=== PATIENT | female | born 1975 | race Caucasian/White ===

== ENCOUNTER → 2016-10-20 | Outpatient (CLI) | payer OTHER ==
[~2016-10-20] MED LIST: ATARAX25 MG PO; CIPROFLOXACIN500 MG PO; CLINDAMYCIN150 MG PO; DICLOFENAC POTA50 MG PO; HYDROCODONE BIT1 T11 PO; MIRENA52 MG IU; MOTRIN800 MG PO; NAPROSYN500 MG PO; NKHM; PREDNICOT20 MG PO; PREDNISONE20 MG PO; ROBAXIN750 MG PO; TAMIFLU75 MG PO; TRAMADOL HCL50 MG PO; VICODIN 500 MG-1 TAB PO; VOLTAREN50 M1 PO; ZOFRAN ODT4 MG PO; ZYRTEC10 MG PO; Zofran4 MG PO
== END | disposition home or self-care (01) ==
LOC: US 13:22
DX: T83.39XA Other mechanical complication of intrauterine contraceptive device, initial encounter (principal)

== ENCOUNTER → 2016-11-05 | Outpatient (CLI) | payer OTHER ==
[2016-11-05 10:30] LABS: BASO % 0.5 % (0.0-1.0); EOS # 0.5 10*3/uL (0.0-0.4); EOS % 6.1 % (1.0-4.0); HEMATOCRIT 39.1 % (37.0-47.0); HEMOGLOBIN 13.4 g/dl (12.0-16.0); LYMPH # 2.9 10*3/uL (1.3-4.4); LYMPH % 36.5 % (27.0-41.0); MEAN CELL VOLUME 92.7 fl (81.0-99.0); MEAN CORPUSCULAR HGB 31.8 pg (27.0-31.0); MEAN CORPUSCULAR HGB CONC 34.3 g/dl (33.0-37.0); MEAN PLATELET VOLUME 9.2 fl (9.6-12.3); MONO # 0.3 10*3/uL (0.1-1.0); MONO % 4.3 % (3.0-9.0); NEUT # 4.2 10*3/uL (2.3-7.9); NEUT % 52.3 % (47.0-73.0); PLATELET COUNT AUTOMATED 340 10*3/uL (130-400); RED BLOOD COUNT 4.22 10*6/uL (4.10-5.10); RED CELL DISTRI WIDTH 11.9 % (0-14.5); WHITE BLOOD COUNT 7.9 10*3/uL (4.8-10.8)
[2016-11-05 11:06] LABS: ALBUMIN 3.9 gm/dl (3.1-4.5); BILIRUBIN, TOTAL 0.4 mg/dl (0.2-1.0); BUN 9 mg/dl (7-24); CARBON DIOXIDE 23 mmol/L (21-32); CHLORIDE 110 mmol/L (98-107); CHOLESTEROL 164 mg/dL (<200); EST GLOM FILT AFRICAN AMERICAN > 60 ml/min; GLUCOSE 93 mg/dL (65-99); POTASSIUM 4.1 mmol/L (3.5-5.1); SGOT/AST 8 IU/L (3-35); SGPT/ALT 16 U/L (12-78); SODIUM 143 mmol/L (136-145); TOTAL PROTEIN 7.9 gm/dL (6.4-8.2); TRIGLYCERIDES 146 mg/dl (<150); VLDL CHOLESTEROL 29 mg/dL (6-40)
[2016-11-05 11:15] LABS: ALKALINE PHOSPHATASE 62 U/L (45-117); HDL CHOLESTEROL 33 mg/dl (40-60); LDL CHOLESTEROL 102 mg/dL (9-159)
== END | disposition home or self-care (01) ==
LOC: LAB 09:56
PROVIDERS: Nurse Practitioner Family
DX: Z13.220 Encounter for screening for lipoid disorders (principal); Z82.49 Family history of ischemic heart disease and other diseases of the circulatory system

== ENCOUNTER → 2017-04-08 | Outpatient (CLI) | payer OTHER ==
[2017-04-08 10:52] LABS: BASO # 0.1 10*3/uL (0.0-0.1); BASO % 0.7 % (0.0-1.0); EOS # 0.5 10*3/uL (0.0-0.4); EOS % 6.4 % (1.0-4.0); HEMATOCRIT 38.3 % (37.0-47.0); LYMPH # 2.5 10*3/uL (1.3-4.4); LYMPH % 34.8 % (27.0-41.0); MEAN CELL VOLUME 94.3 fl (81.0-99.0); MEAN CORPUSCULAR HGB CONC 33.9 g/dl (33.0-37.0); MONO # 0.3 10*3/uL (0.1-1.0); MONO % 4.6 % (3.0-9.0); NEUT # 3.8 10*3/uL (2.3-7.9); NEUT % 53.1 % (47.0-73.0); PLATELET COUNT AUTOMATED 326 10*3/uL (130-400); RED BLOOD COUNT 4.06 10*6/uL (4.10-5.10); RED CELL DISTRI WIDTH 11.9 % (0-14.5); WHITE BLOOD COUNT 7.2 10*3/uL (4.8-10.8)
[2017-04-08 11:16] LABS: ALBUMIN 3.6 gm/dl (3.1-4.5); ALKALINE PHOSPHATASE 79 U/L (45-117); BUN 9 mg/dl (7-24); CHLORIDE 109 mmol/L (98-107); CHOLESTEROL 173 mg/dL (<200); CREATININE 0.84 mg/dL (0.55-1.02); HDL CHOLESTEROL 30 mg/dl (40-60); LDL CHOLESTEROL 118 mg/dL (9-159); POTASSIUM 3.8 mmol/L (3.5-5.1); SGOT/AST 9 IU/L (3-35); SGPT/ALT 13 U/L (12-78); SODIUM 139 mmol/L (136-145); TOTAL PROTEIN 7.7 gm/dL (6.4-8.2); TRIGLYCERIDES 124 mg/dl (<150); VLDL CHOLESTEROL 25 mg/dL (6-40)
== END | disposition home or self-care (01) ==
LOC: LAB 10:15
PROVIDERS: Nurse Practitioner Family
DX: E66.9 Obesity, unspecified (principal)

== ENCOUNTER → 2017-04-22 | Outpatient (CLI) | payer OTHER | END | disposition home or self-care (01) | LOC: CARD 04-21 10:00 | DX: R00.2 Palpitations (principal) ==

== ENCOUNTER → 2017-05-18 | Outpatient (CLI) | payer OTHER | END | disposition home or self-care (01) | LOC: US 05-13 10:00 | DX: R10.13 Epigastric pain (principal) ==

== ENCOUNTER 2017-06-16 15:28 | Emergency (ER) | payer OTHER ==
[~2017-06-16] VITALS: Ht 157.4 cm; Wt 65.8 kg
--- NOTE | ~2017-06-16 | EKG ---
[place], [place] ELECTROCARDIOGRAM REPORT NAME: NICK JONES UNIT #: [id number] ROOM: DOCTOR: MILLY GORDON MD BIRTHDATE: [birth year] DOS: 06/16/2017 TIME: 1537 hours. Normal sinus rhythm at 67 beats per minute. The tracing is normal. No previous tracing is available in comparison. MILLY GORDON MD CM:EKGRPT:ELECTROCARDIOGRAM REPORT [id number] MILLY GORDON MD
[2017-06-16 15:57] LABS: BASO # 0.1 10*3/uL (0.0-0.1); BASO % 0.6 % (0.0-1.0); EOS # 0.5 10*3/uL (0.0-0.4); EOS % 4.2 % (1.0-4.0); HEMATOCRIT 35.4 % (37.0-47.0); HEMOGLOBIN 12.3 g/dl (12.0-16.0); LYMPH # 3.6 10*3/uL (1.3-4.4); LYMPH % 32.8 % (27.0-41.0); MEAN CELL VOLUME 93.2 fl (81.0-99.0); MEAN CORPUSCULAR HGB 32.4 pg (27.0-31.0); MEAN CORPUSCULAR HGB CONC 34.7 g/dl (33.0-37.0); MEAN PLATELET VOLUME 8.6 fl (9.6-12.3); MONO # 0.5 10*3/uL (0.1-1.0); MONO % 4.3 % (3.0-9.0); NEUT # 6.3 10*3/uL (2.3-7.9); NEUT % 57.9 % (47.0-73.0); PLATELET COUNT AUTOMATED 360 10*3/uL (130-400); RED CELL DISTRI WIDTH 11.9 % (0-14.5); WHITE BLOOD COUNT 10.9 10*3/uL (4.8-10.8)
[2017-06-16 16:06] LABS: ACT PARTIAL THROMBO TIME 23.5 SECONDS (20.8-31.5)
[2017-06-16 16:15] LABS: ALBUMIN 3.8 gm/dl (3.1-4.5); ALKALINE PHOSPHATASE 76 U/L (45-117); BUN 10 mg/dl (7-24); CHLORIDE 107 mmol/L (98-107); CREATININE 0.86 mg/dL (0.55-1.02); POTASSIUM 3.7 mmol/L (3.5-5.1); SGOT/AST 7 IU/L (3-35); SGPT/ALT 18 U/L (12-78); SODIUM 139 mmol/L (136-145); TOTAL PROTEIN 7.6 gm/dL (6.4-8.2)
[2017-06-16 16:16] LABS: TROPONIN I < 0.015 ng/ml (<0.045)
== END 2017-06-16 17:22 | disposition home or self-care (01) ==
LOC: ED 15:28
PROVIDERS: Emergency Medicine
DX: R07.89 Other chest pain (principal); H53.122 Transient visual loss, left eye; G43.809 Other migraine, not intractable, without status migrainosus; F17.210 Nicotine dependence, cigarettes, uncomplicated; Z88.0 Allergy status to penicillin

== ENCOUNTER → 2018-01-18 | Outpatient (CLI) | payer OTHER ==
[2018-01-18 09:47] LABS: BASO # 0.1 10*3/uL (0.0-0.1); BASO % 0.8 % (0.0-1.0); EOS # 0.4 10*3/uL (0.0-0.4); EOS % 5.1 % (1.0-4.0); HEMATOCRIT 40.9 % (37.0-47.0); HEMOGLOBIN 13.5 g/dl (12.0-16.0); LYMPH # 2.2 10*3/uL (1.3-4.4); LYMPH % 31.6 % (27.0-41.0); MEAN CELL VOLUME 97.8 fl (81.0-99.0); MEAN CORPUSCULAR HGB 32.3 pg (27.0-31.0); MEAN PLATELET VOLUME 8.9 fl (9.6-12.3); MONO # 0.4 10*3/uL (0.1-1.0); MONO % 5.8 % (3.0-9.0); NEUT % 56.1 % (47.0-73.0); PLATELET COUNT AUTOMATED 349 10*3/uL (130-400); RED BLOOD COUNT 4.18 10*6/uL (4.10-5.10); RED CELL DISTRI WIDTH 11.9 % (0-14.5); WHITE BLOOD COUNT 7.1 10*3/uL (4.8-10.8)
[2018-01-18 10:10] LABS: ALKALINE PHOSPHATASE 81 U/L (45-117); BUN 9 mg/dl (7-24); CHLORIDE 108 mmol/L (98-107); CHOLESTEROL 164 mg/dL (<200); CREATININE 0.97 mg/dL (0.55-1.02); HDL CHOLESTEROL 28 mg/dl (40-60); LDL CHOLESTEROL 108 mg/dL (9-159); POTASSIUM 4.1 mmol/L (3.5-5.1); SGOT/AST 10 IU/L (3-35); SGPT/ALT 22 U/L (12-78); SODIUM 139 mmol/L (136-145); TOTAL PROTEIN 8.3 gm/dL (6.4-8.2); TRIGLYCERIDES 138 mg/dl (<150); VLDL CHOLESTEROL 28 mg/dL (6-40)
[2018-01-18 12:00] LABS: VITAMIN D, 25-HYDROXY 30.7 ng/mL (30-100)
== END | disposition home or self-care (01) ==
LOC: LAB 09:14
PROVIDERS: Nurse Practitioner Family
DX: K21.9 Gastro-esophageal reflux disease without esophagitis (principal); G47.00 Insomnia, unspecified; A60.00 Herpesviral infection of urogenital system, unspecified; F39 Unspecified mood [affective] disorder; B35.9 Dermatophytosis, unspecified

== ENCOUNTER → 2018-02-03 | Outpatient (CLI) | payer OTHER | END | disposition home or self-care (01) | LOC: MAMMO 07:23 | DX: Z12.31 Encounter for screening mammogram for malignant neoplasm of breast (principal) ==

== ENCOUNTER 2019-08-16 20:02 | Emergency (ER) | payer OTHER ==
[~2019-08-16] VITALS: Ht 157.4 cm; Wt 71.7 kg
[~2019-08-16 20:02] MED LIST changes: +ZOFRAN4 MG PO
[2019-08-16] MEDS ORDERED: ANAPROX DS550 MG PO (21:57)
== END 2019-08-16 22:26 | disposition home or self-care (01) ==
LOC: ED 20:02
DX: K08.89 Other specified disorders of teeth and supporting structures (principal); Z88.0 Allergy status to penicillin

== ENCOUNTER → 2019-08-24 | Outpatient (CLI) | payer OTHER ==
[~2019-08-24] MED LIST changes: +ANAPROX DS550 MG PO
[2019-08-24 11:08] LABS: BASO # 0.1 10*3/uL (0.0-0.1); BASO % 0.7 % (0.0-1.0); EOS # 0.5 10*3/uL (0.0-0.4); EOS % 6.4 % (1.0-4.0); HEMATOCRIT 39.8 % (37.0-47.0); HEMOGLOBIN 13.1 g/dl (12.0-16.0); LYMPH # 2.4 10*3/uL (1.3-4.4); LYMPH % 33.4 % (27.0-41.0); MEAN CELL VOLUME 97.8 fl (81.0-99.0); MEAN CORPUSCULAR HGB 32.2 pg (27.0-31.0); MEAN CORPUSCULAR HGB CONC 32.9 g/dl (33.0-37.0); MEAN PLATELET VOLUME 8.8 fl (9.6-12.3); MONO # 0.3 10*3/uL (0.1-1.0); MONO % 4.5 % (3.0-9.0); NEUT # 3.9 10*3/uL (2.3-7.9); NEUT % 54.7 % (47.0-73.0); PLATELET COUNT AUTOMATED 409 10*3/uL (130-400); RED BLOOD COUNT 4.07 10*6/uL (4.10-5.10); RED CELL DISTRI WIDTH 12.2 % (0-14.5); WHITE BLOOD COUNT 7.2 10*3/uL (4.8-10.8)
[2019-08-24 11:38] LABS: ALBUMIN 3.7 gm/dl (3.1-4.5); ALKALINE PHOSPHATASE 80 U/L (45-117); BUN 10 mg/dl (7-24); CHLORIDE 110 mmol/L (98-107); CHOLESTEROL 187 mg/dL (<200); CREATININE 0.97 mg/dL (0.55-1.02); HDL CHOLESTEROL 38 mg/dl (40-60); LDL CHOLESTEROL 118 mg/dL (9-159); POTASSIUM 4.2 mmol/L (3.5-5.1); SGOT/AST 11 IU/L (3-35); SGPT/ALT 23 U/L (12-78); SODIUM 139 mmol/L (136-145); TOTAL PROTEIN 7.7 gm/dL (6.4-8.2); TRIGLYCERIDES 156 mg/dl (<150); VLDL CHOLESTEROL 31 mg/dL (6-40)
== END | disposition home or self-care (01) ==
LOC: LAB 10:38
PROVIDERS: Nurse Practitioner Family
DX: E78.2 Mixed hyperlipidemia (principal); E55.9 Vitamin D deficiency, unspecified; E66.3 Overweight

== ENCOUNTER 2021-03-30 12:30 | Emergency (ER) | payer OTHER ==
[2021-03-30] MEDS ORDERED: NAPROXEN250 MG PO (13:01)
[2021-03-30] MEDS ORDERED: CYCLOBENZAPRINE10 MG PO (13:01)
[2021-03-30] MEDS ORDERED: TYLENOL325 M1 PO (13:01)
== END 2021-03-30 13:33 | disposition home or self-care (01) ==
LOC: ED 12:30
DX: M25.512 Pain in left shoulder (principal); E66.9 Obesity, unspecified; Z88.0 Allergy status to penicillin; Z79.899 Other long term (current) drug therapy; Z79.2 Long term (current) use of antibiotics

== ENCOUNTER → 2021-10-01 | Outpatient (CLI) | payer OTHER ==
[~2021-10-01] MED LIST changes: +CYCLOBENZAPRINE10 MG PO; +NAPROXEN250 MG PO; +TYLENOL325 M1 PO
== END | disposition home or self-care (01) ==
LOC: RAD 07:41
PROVIDERS: ATTEND Nurse Practitioner Family
DX: R05.9 Cough, unspecified (principal); R06.2 Wheezing

== ENCOUNTER 2022-11-01 12:33 | Emergency (ER) | payer OTHER ==
[~2022-11-01] VITALS: Ht 157.4 cm; Wt 74.8 kg
[~2022-11-01 12:33] MED LIST changes: +FLUOXETINE HCL10 MG PO; +NEURONTIN100 MG PO; +OMEPRAZOLE MAGN20 MG PO; +TOPIRAMATE50 M2 PO; +TRAZODONE50 MG PO; +VALACYCLOVIR500 M1 PO; +VITAMIN D3125 MCG PO
[2022-11-01] MEDS ORDERED: VIBRA-TAB100 MG PO ×2 (13:02→13:12)
== END 2022-11-01 13:05 | disposition home or self-care (01) ==
LOC: ED 12:33
DX: J32.0 Chronic maxillary sinusitis (principal); K21.9 Gastro-esophageal reflux disease without esophagitis; G62.9 Polyneuropathy, unspecified; Z88.0 Allergy status to penicillin; Z98.890 Other specified postprocedural states

== ENCOUNTER 2023-02-09 16:16 | Emergency (ER) | payer OTHER ==
[~2023-02-09] VITALS: Ht 157.4 cm; Wt 72.6 kg
[~2023-02-09 16:16] MED LIST changes: +VIBRA-TAB100 MG PO
[2023-02-09] MEDS ORDERED: PREDNISONE20 M1 PO (17:14)
== END 2023-02-09 17:28 | disposition home or self-care (01) ==
LOC: ED 16:16
DX: L23.7 Allergic contact dermatitis due to plants, except food (principal); K21.9 Gastro-esophageal reflux disease without esophagitis; G62.9 Polyneuropathy, unspecified; Z88.0 Allergy status to penicillin; Z98.890 Other specified postprocedural states

== ENCOUNTER 2023-02-24 14:46 | Emergency (ER) | payer OTHER ==
[~2023-02-24] VITALS: Ht 157.4 cm; Wt 74.8 kg
[~2023-02-24 14:46] MED LIST changes: +PREDNISONE20 M1 PO
[2023-02-24] MEDS ORDERED: PREDNISONE20 M1 PO (17:22)
[2023-02-24] MEDS ORDERED: EPIPEN 2-P0.3 MG/0.3 IJ (17:25)
== END 2023-02-24 17:50 | disposition home or self-care (01) ==
LOC: ED 14:46
DX: T63.441A Toxic effect of venom of bees, accidental (unintentional), initial encounter (principal); K21.9 Gastro-esophageal reflux disease without esophagitis; Z88.0 Allergy status to penicillin; Z98.890 Other specified postprocedural states; Y92.89 Other specified places as the place of occurrence of the external cause

== ENCOUNTER → 2023-05-25 | Outpatient (CLI) | payer OTHER ==
[~2023-05-25] MED LIST changes: +EPIPEN 2-P0.3 MG/0.3 IJ
[2023-05-25 08:59] LABS: BASO % 0.6 % (0.0-1.0); EOS # 0.3 10*3/uL (0.0-0.4); EOS % 3.7 % (1.0-4.0); HEMATOCRIT 39.6 % (37.0-47.0); LYMPH % 43.5 % (27.0-41.0); MEAN CELL VOLUME 98.8 fl (81.0-99.0); MEAN CORPUSCULAR HGB 33.4 pg (27.0-31.0); MEAN CORPUSCULAR HGB CONC 33.8 g/dl (33.0-37.0); MEAN PLATELET VOLUME 9.2 fl (9.6-12.3); MONO # 0.4 10*3/uL (0.1-1.0); MONO % 5.6 % (3.0-9.0); NEUT # 3.2 10*3/uL (2.3-7.9); NEUT % 46.3 % (47.0-73.0); PLATELET COUNT AUTOMATED 409 10*3/uL (130-400); RED BLOOD COUNT 4.01 10*6/uL (4.10-5.10); RED CELL DISTRI WIDTH 12.2 % (0-14.5)
[2023-05-25 09:45] LABS: ALKALINE PHOSPHATASE 77 U/L (46-116); BUN 10 mg/dl (9-23); CHLORIDE 111 mmol/L (98-107); POTASSIUM 3.8 mmol/L (3.4-5.1); SGPT/ALT 9 U/L (5-49); TOTAL PROTEIN 7.8 gm/dL (6.0-8.0)
[2023-05-25 11:19] LABS: VITAMIN D, 25-HYDROXY 46.5 ng/mL (30-100)
== END | disposition home or self-care (01) ==
LOC: LAB 08:15
PROVIDERS: ATTEND Nurse Practitioner Family
DX: G43.009 Migraine without aura, not intractable, without status migrainosus (principal); E78.2 Mixed hyperlipidemia; E55.9 Vitamin D deficiency, unspecified; R53.83 Other fatigue; E61.1 Iron deficiency; R63.5 Abnormal weight gain

== ENCOUNTER 2023-08-07 19:42 | Emergency (ER) | payer OTHER ==
[~2023-08-07] VITALS: Ht 162.5 cm; Wt 78.0 kg
== END 2023-08-07 21:11 | disposition home or self-care (01) ==
LOC: ED 19:42
DX: J06.9 Acute upper respiratory infection, unspecified (principal); R51.9 Headache, unspecified; K21.9 Gastro-esophageal reflux disease without esophagitis; Z88.0 Allergy status to penicillin; Z98.890 Other specified postprocedural states; Z20.822 Contact with and (suspected) exposure to COVID-19

== ENCOUNTER 2023-08-16 03:34 | Emergency (ER) | payer OTHER ==
[~2023-08-16] VITALS: Ht 162.5 cm; Wt 74.8 kg
[2023-08-16] MEDS ORDERED: MELOXICAM15 MG PO (06:41)
[2023-08-16] MEDS ORDERED: CYCLOBENZAPRINE10 MG PO (06:41)
== END 2023-08-16 06:56 | disposition home or self-care (01) ==
LOC: ED 03:34
DX: M54.50 Low back pain, unspecified (principal); M62.830 Muscle spasm of back; K21.9 Gastro-esophageal reflux disease without esophagitis; Z88.0 Allergy status to penicillin; Z98.890 Other specified postprocedural states

== ENCOUNTER → 2023-10-12 | Outpatient (CLI) | payer OTHER ==
[~2023-10-12] MED LIST changes: +MELOXICAM15 MG PO
== END | disposition home or self-care (01) ==
LOC: LAB 10:57
PROVIDERS: ATTEND Nurse Practitioner Family
DX: R15.9 Full incontinence of feces (principal); R19.7 Diarrhea, unspecified

== ENCOUNTER 2023-11-02 03:58 | Emergency (ER) | payer OTHER ==
[~2023-11-02] VITALS: Ht 157.4 cm; Wt 76.2 kg
[2023-11-02] MEDS ORDERED: IMITREX50 MG PO (04:20)
[2023-11-02] MEDS ORDERED: Ondansetron Hydrochloride 4 MG/2 ML VIAL IV ONE (05:40)
[2023-11-02] MEDS ORDERED: Ketorolac Tromethamine 30 MG/ML VIAL IV ONE (05:40)
[2023-11-02] MEDS ORDERED: SODIUM CHLORIDE 0.9% 1,000 ML IV ONE (05:40)
[2023-11-02 05:44] LABS: ALKALINE PHOSPHATASE 93 U/L (46-116); BUN 17 mg/dl (9-23); CHLORIDE 112 mmol/L (98-107); POTASSIUM 3.3 mmol/L (3.4-5.1); SGPT/ALT 21 U/L (5-49); TOTAL PROTEIN 7.8 gm/dL (6.0-8.0)
[2023-11-02 06:00] LABS: BASO # 0.1 10*3/uL (0.0-0.1); BASO % 0.5 % (0.0-1.0); EOS # 0.4 10*3/uL (0.0-0.4); EOS % 3.6 % (1.0-4.0); HEMATOCRIT 41.6 % (37.0-47.0); LYMPH # 1.7 10*3/uL (1.3-4.4); MEAN CELL VOLUME 98.1 fl (81.0-99.0); MEAN CORPUSCULAR HGB 32.8 pg (27.0-31.0); MEAN CORPUSCULAR HGB CONC 33.4 g/dl (33.0-37.0); MEAN PLATELET VOLUME 9.1 fl (9.6-12.3); MONO # 0.5 10*3/uL (0.1-1.0); MONO % 4.3 % (3.0-9.0); NEUT # 8.4 10*3/uL (2.3-7.9); NEUT % 76.2 % (47.0-73.0); PLATELET COUNT AUTOMATED 418 10*3/uL (130-400); RED BLOOD COUNT 4.24 10*6/uL (4.10-5.10); RED CELL DISTRI WIDTH 11.9 % (0-14.5); WHITE BLOOD COUNT 11.1 10*3/uL (4.8-10.8)
[2023-11-02] MEDS ORDERED: POTASSIUM CHLORIDE 20 MEQ TAB PO ONE (06:00)
[2023-11-02] MEDS ORDERED: HYDROmorphONE Hydrochloride 0.5 MG/0.5 ML SYRINGE IV ONE (09:15)
== END 2023-11-02 09:18 | disposition home or self-care (01) ==
LOC: ED 03:58
PROVIDERS: Internal Medicine
DX: B34.9 Viral infection, unspecified (principal); Z20.822 Contact with and (suspected) exposure to COVID-19; K52.9 Noninfective gastroenteritis and colitis, unspecified; E87.6 Hypokalemia; R11.2 Nausea with vomiting, unspecified; K21.9 Gastro-esophageal reflux disease without esophagitis; G43.909 Migraine, unspecified, not intractable, without status migrainosus; Z88.0 Allergy status to penicillin; Z98.890 Other specified postprocedural states

== ENCOUNTER 2023-11-22 17:45 | Emergency (ER) | payer OTHER ==
[~2023-11-22] VITALS: Ht 157.4 cm; Wt 77.1 kg
[~2023-11-22 17:45] MED LIST changes: +IMITREX50 MG PO
[2023-11-22] MEDS ORDERED: Ondansetron Hydrochloride 4 MG/2 ML VIAL IV ONE (18:55)
[2023-11-22] MEDS ORDERED: HYDROmorphONE Hydrochloride 0.5 MG/0.5 ML SYRINGE IV ONE (18:55)
[2023-11-22] MEDS ORDERED: SODIUM CHLORIDE 0.9% 1,000 ML IV ONE (18:55)
[2023-11-22 19:05] LABS: BILIRUBIN Negative (Negative); BLOOD 2+ (Negative); CLARITY Cloudy (Clear); COLOR Yellow (Yellow); GLUCOSE Negative (Negative); KETONE Trace (Negative); LEUKO ESTERASE 1+ (Negative); NITRITE Negative (Negative); PH 5.5 (4.5-8.0); SPECIFIC GRAVITY >= 1.030 (1.001-1.030)
[2023-11-22 19:13] LABS: BACTERIA 2+; EPITHELIAL CELLS 21-30; MUCOUS 2+; RBC 21-30 rbc/hpf (0-2)
[2023-11-22 19:23] LABS: BASO # 0.1 10*3/uL (0.0-0.1); BASO % 0.4 % (0.0-1.0); EOS # 0.1 10*3/uL (0.0-0.4); EOS % 0.5 % (1.0-4.0); LYMPH # 1.5 10*3/uL (1.3-4.4); LYMPH % 9.7 % (27.0-41.0); MEAN CELL VOLUME 98.7 fl (81.0-99.0); MEAN CORPUSCULAR HGB 31.9 pg (27.0-31.0); MEAN CORPUSCULAR HGB CONC 32.3 g/dl (33.0-37.0); MEAN PLATELET VOLUME 8.9 fl (9.6-12.3); MONO # 0.4 10*3/uL (0.1-1.0); MONO % 2.9 % (3.0-9.0); NEUT # 12.9 10*3/uL (2.3-7.9); NEUT % 86.1 % (47.0-73.0); PLATELET COUNT AUTOMATED 363 10*3/uL (130-400); RED BLOOD COUNT 3.95 10*6/uL (4.10-5.10)
[2023-11-22 19:34] LABS: ACT PARTIAL THROMBO TIME 24.8 SECONDS (20.0-32.1)
[2023-11-22 19:44] LABS: ALKALINE PHOSPHATASE 82 U/L (46-116); BUN 13 mg/dl (9-23); CHLORIDE 109 mmol/L (98-107); LIPASE 39 U/L (12-53); POTASSIUM 3.8 mmol/L (3.4-5.1); SGPT/ALT 19 U/L (5-49); TOTAL PROTEIN 7.6 gm/dL (6.0-8.0)
[2023-11-22] MEDS ORDERED: CIPRO500 MG PO (21:57)
[2023-11-22] MEDS ORDERED: Ketorolac Tromethamine 30 MG/ML VIAL IV ONE (22:00)
[2023-11-22] MEDS ORDERED: Ciprofloxacin Hydrochloride 500 MG TAB PO ONE (22:15)
== END 2023-11-22 22:30 | disposition home or self-care (01) ==
LOC: ED 17:45
PROVIDERS: Nurse Practitioner Family
DX: N39.0 Urinary tract infection, site not specified (principal); R11.2 Nausea with vomiting, unspecified; E87.6 Hypokalemia; K21.9 Gastro-esophageal reflux disease without esophagitis; G43.909 Migraine, unspecified, not intractable, without status migrainosus; E78.00 Pure hypercholesterolemia, unspecified; Z88.0 Allergy status to penicillin; Z98.890 Other specified postprocedural states

== ENCOUNTER 2023-12-06 03:40 | Emergency (ER) | payer OTHER ==
[~2023-12-06] VITALS: Ht 157.4 cm; Wt 77.1 kg
[~2023-12-06 03:40] MED LIST changes: +CIPRO500 MG PO
[2023-12-06] MEDS ORDERED: methylPREDNISolone sod succ 125 MG VIAL IM ONE (03:55)
== END 2023-12-06 04:08 | disposition home or self-care (01) ==
LOC: ED 03:40
DX: L23.7 Allergic contact dermatitis due to plants, except food (principal); K21.9 Gastro-esophageal reflux disease without esophagitis; G43.909 Migraine, unspecified, not intractable, without status migrainosus; Z88.0 Allergy status to penicillin; Z98.890 Other specified postprocedural states

== ENCOUNTER 2024-03-13 10:37 | Emergency (ER) | payer OTHER ==
[~2024-03-13] VITALS: Ht 157.4 cm; Wt 74.8 kg
[2024-03-13] MEDS ORDERED: diphenhydrAMINE hydrochloride 50 MG/ML VIAL IV ONE (10:55)
[2024-03-13] MEDS ORDERED: ACETAMINOPHEN 325 MG TAB PO ONE (10:55)
[2024-03-13] MEDS ORDERED: SODIUM CHLORIDE 0.9% 1,000 ML IV ONE (10:55)
[2024-03-13] MEDS ORDERED: Ketorolac Tromethamine 15 MG/ML VIAL IV ONE (10:55)
[2024-03-13] MEDS ORDERED: Metoclopramide Hydrochloride 10 MG/2 ML AMP IV ONE (10:55)
[2024-03-13 11:13] LABS: BASO # 0.1 10*3/uL (0.0-0.1); BASO % 0.4 % (0.0-1.0); EOS # 0.1 10*3/uL (0.0-0.4); EOS % 0.8 % (1.0-4.0); HEMATOCRIT 39.6 % (37.0-47.0); LYMPH # 1.7 10*3/uL (1.3-4.4); LYMPH % 12.5 % (27.0-41.0); MEAN CELL VOLUME 95.4 fl (81.0-99.0); MEAN CORPUSCULAR HGB 31.8 pg (27.0-31.0); MEAN CORPUSCULAR HGB CONC 33.3 g/dl (33.0-37.0); MEAN PLATELET VOLUME 8.6 fl (9.6-12.3); MONO # 0.5 10*3/uL (0.1-1.0); MONO % 3.7 % (3.0-9.0); NEUT % 82.3 % (47.0-73.0); PLATELET COUNT AUTOMATED 342 10*3/uL (130-400); RED BLOOD COUNT 4.15 10*6/uL (4.10-5.10); WHITE BLOOD COUNT 13.4 10*3/uL (4.8-10.8)
[2024-03-13 11:31] LABS: ALKALINE PHOSPHATASE 94 U/L (46-116); BUN 11 mg/dl (9-23); CHLORIDE 110 mmol/L (98-107); POTASSIUM 2.8 mmol/L (3.4-5.1); SGPT/ALT 11 U/L (5-49); TOTAL PROTEIN 7.8 gm/dL (6.0-8.0)
[2024-03-13] MEDS ORDERED: POTASSIUM CHLORIDE IN WATER 100 ML IV ONE (11:40)
[2024-03-13] MEDS ORDERED: POTASSIUM CHLORIDE 20 MEQ TAB PO ONE (11:40)
[2024-03-13] MEDS ORDERED: REGLAN10 M1 PO (12:54)
== END 2024-03-13 13:34 | disposition home or self-care (01) ==
LOC: ED 10:37
PROVIDERS: Internal Medicine
DX: G43.909 Migraine, unspecified, not intractable, without status migrainosus (principal); E87.6 Hypokalemia; R11.2 Nausea with vomiting, unspecified; R19.7 Diarrhea, unspecified; K21.9 Gastro-esophageal reflux disease without esophagitis; Z88.0 Allergy status to penicillin; Z88.8 Allergy status to other drugs, medicaments and biological substances; Z98.890 Other specified postprocedural states

== ENCOUNTER 2024-03-29 01:38 | Emergency (ER) | payer OTHER ==
[~2024-03-29] VITALS: Ht 167.6 cm; Wt 74.8 kg
[~2024-03-29 01:38] MED LIST changes: +REGLAN10 M1 PO
[2024-03-29 02:35] LABS: BUN 11 mg/dl (9-23); CHLORIDE 111 mmol/L (98-107); POTASSIUM 3.5 mmol/L (3.4-5.1)
== END 2024-03-29 03:10 | disposition home or self-care (01) ==
LOC: ED 01:38
PROVIDERS: Internal Medicine
DX: R51.9 Headache, unspecified (principal); Z01.89 Encounter for other specified special examinations; Z88.0 Allergy status to penicillin; Z88.6 Allergy status to analgesic agent; Z79.899 Other long term (current) drug therapy

== ENCOUNTER → 2024-06-07 | Outpatient (CLI) | payer OTHER ==
[2024-06-07 12:17] LABS: BASO % 0.4 % (0.0-1.0); EOS % 0.1 % (1.0-4.0); HEMATOCRIT 41.7 % (37.0-47.0); MEAN CELL VOLUME 95.6 fl (81.0-99.0); MEAN CORPUSCULAR HGB 32.8 pg (27.0-31.0); MEAN CORPUSCULAR HGB CONC 34.3 g/dl (33.0-37.0); MEAN PLATELET VOLUME 8.8 fl (9.6-12.3); MONO # 0.5 10*3/uL (0.1-1.0); MONO % 5.2 % (3.0-9.0); NEUT # 8.5 10*3/uL (2.3-7.9); NEUT % 83.1 % (47.0-73.0); PLATELET COUNT AUTOMATED 318 10*3/uL (130-400); RED BLOOD COUNT 4.36 10*6/uL (4.10-5.10); RED CELL DISTRI WIDTH 12.5 % (0-14.5); WHITE BLOOD COUNT 10.2 10*3/uL (4.8-10.8)
[2024-06-07 12:38] LABS: BUN 12 mg/dl (9-23); CHLORIDE 106 mmol/L (98-107); POTASSIUM 3.6 mmol/L (3.4-5.1)
== END | disposition home or self-care (01) ==
LOC: LAB 12:01
PROVIDERS: ATTEND Nurse Practitioner Family
DX: R50.9 Fever, unspecified (principal); J02.9 Acute pharyngitis, unspecified; R51.9 Headache, unspecified; R06.2 Wheezing; R00.0 Tachycardia, unspecified; J20.9 Acute bronchitis, unspecified; J18.9 Pneumonia, unspecified organism; R05.1 Acute cough

== ENCOUNTER 2024-06-08 22:52 | Emergency (ER) | payer OTHER ==
[~2024-06-08] VITALS: Ht 157.4 cm; Wt 72.6 kg
[2024-06-09] MEDS ORDERED: methylPREDNISolone sod succ 125 MG VIAL IM ONE (00:30)
[2024-06-09] MEDS ORDERED: PREDNISONE20 M1 PO ×2 (00:31→00:32)
== END 2024-06-09 00:40 | disposition home or self-care (01) ==
LOC: ED 22:52
DX: B34.9 Viral infection, unspecified (principal); Z20.822 Contact with and (suspected) exposure to COVID-19; K21.9 Gastro-esophageal reflux disease without esophagitis; G43.909 Migraine, unspecified, not intractable, without status migrainosus; Z88.0 Allergy status to penicillin; Z88.8 Allergy status to other drugs, medicaments and biological substances; Z98.890 Other specified postprocedural states

== ENCOUNTER 2024-10-04 07:52 | Emergency (ER) | payer OTHER ==
[~2024-10-04] VITALS: Ht 157.4 cm; Wt 77.1 kg
[2024-10-04] MEDS ORDERED: Ketorolac Tromethamine 30 MG/ML VIAL IM ONE (08:00)
[2024-10-04] MEDS ORDERED: Dexamethasone Sodium Phospha 20 MG/5 ML VIAL IM ONE (08:05)
[2024-10-04] MEDS ORDERED: MEDROL DOSEPAK4 MG PO (09:13)
== END 2024-10-04 09:17 | disposition home or self-care (01) ==
LOC: ED 07:52
DX: S46.912A Strain of unspecified muscle, fascia and tendon at shoulder and upper arm level, left arm, initial encounter (principal); K21.9 Gastro-esophageal reflux disease without esophagitis; G43.909 Migraine, unspecified, not intractable, without status migrainosus; F17.200 Nicotine dependence, unspecified, uncomplicated; Z88.0 Allergy status to penicillin; Z88.8 Allergy status to other drugs, medicaments and biological substances; Z98.890 Other specified postprocedural states; X50.0XXA Overexertion from strenuous movement or load, initial encounter; Y93.89 Activity, other specified; Y92.89 Other specified places as the place of occurrence of the external cause; Y99.0 Civilian activity done for income or pay

== ENCOUNTER 2024-12-04 16:48 | Emergency (ER) | payer OTHER ==
[~2024-12-04] VITALS: Ht 157.4 cm
[~2024-12-04 16:48] MED LIST changes: +MEDROL DOSEPAK4 MG PO
[2024-12-04] MEDS ORDERED: PREDNISONE20 M1 PO (17:50)
[2024-12-04] MEDS ORDERED: Dexamethasone Sodium Phospha 20 MG/5 ML VIAL IM ONE (17:55)
== END 2024-12-04 18:02 | disposition home or self-care (01) ==
LOC: ED 16:48
DX: L25.9 Unspecified contact dermatitis, unspecified cause (principal); K21.9 Gastro-esophageal reflux disease without esophagitis; G43.909 Migraine, unspecified, not intractable, without status migrainosus; Z79.899 Other long term (current) drug therapy; Z88.0 Allergy status to penicillin; Z88.8 Allergy status to other drugs, medicaments and biological substances

== ENCOUNTER 2024-12-25 23:16 | Emergency (ER) | payer OTHER ==
[~2024-12-25] VITALS: Ht 157.5 cm; Wt 77.1 kg
[2024-12-26] MEDS ORDERED: NAPROXEN250 MG PO (00:10)
[2024-12-26] MEDS ORDERED: METHOCARBAMOL500 M1 PO (00:10)
== END 2024-12-26 00:17 | disposition home or self-care (01) ==
LOC: ED 23:16
DX: M25.512 Pain in left shoulder (principal); K21.9 Gastro-esophageal reflux disease without esophagitis; Z79.899 Other long term (current) drug therapy; Z88.1 Allergy status to other antibiotic agents; Z88.5 Allergy status to narcotic agent

== ENCOUNTER → 2025-01-09 | Outpatient (CLI) | payer OTHER ==
[~2025-01-09] MED LIST changes: +METHOCARBAMOL500 M1 PO
== END | disposition home or self-care (01) ==
LOC: MRI 01-05 10:00
PROVIDERS: ATTEND Orthopaedic Surgery
DX: M67.814 Other specified disorders of tendon, left shoulder (principal); M75.82 Other shoulder lesions, left shoulder; M75.02 Adhesive capsulitis of left shoulder

== ENCOUNTER → 2025-02-22 | Outpatient (CLI) | payer OTHER ==
[~2025-02-22] MED LIST changes: +GADOTERATE MEGLUMINE 5 MMOL/10 ML VIAL IV ONE; +IOHEXOL 240 MG/ML 20 ML SOL IJ ONE; +IOHEXOL 240 MG/ML 20 ML SOL ONE; +Lidocaine Hydrochloride 5 ML AMP IJ ONE; +Lidocaine Hydrochloride 5 ML AMP ONE; +SODIUM BICARBONATE 4.2% 5 ML VIAL IJ ONE; +SODIUM BICARBONATE 4.2% 5 ML VIAL ONE; +SODIUM CHLORIDE 0.9% 10 ML VIAL IJ ONE; +SODIUM CHLORIDE 0.9% 10 ML VIAL IJ SCH; +SODIUM CHLORIDE 0.9% 10 ML VIAL ONE
== END | disposition home or self-care (01) ==
LOC: RAD 02:52
PROVIDERS: ATTEND Orthopaedic Surgery
DX: M75.02 Adhesive capsulitis of left shoulder (principal); M25.812 Other specified joint disorders, left shoulder; K21.9 Gastro-esophageal reflux disease without esophagitis; G62.9 Polyneuropathy, unspecified; Z88.0 Allergy status to penicillin; Z88.8 Allergy status to other drugs, medicaments and biological substances; Z87.891 Personal history of nicotine dependence; Z79.899 Other long term (current) drug therapy

== ENCOUNTER 2025-04-08 02:01 | Emergency (ER) | payer SELFPAY ==
[~2025-04-08 02:01] MED LIST changes: -GADOTERATE MEGLUMINE 5 MMOL/10 ML VIAL IV ONE; -IOHEXOL 240 MG/ML 20 ML SOL IJ ONE; -IOHEXOL 240 MG/ML 20 ML SOL ONE; -Lidocaine Hydrochloride 5 ML AMP IJ ONE; -Lidocaine Hydrochloride 5 ML AMP ONE; -SODIUM BICARBONATE 4.2% 5 ML VIAL IJ ONE; -SODIUM BICARBONATE 4.2% 5 ML VIAL ONE; -SODIUM CHLORIDE 0.9% 10 ML VIAL IJ ONE; -SODIUM CHLORIDE 0.9% 10 ML VIAL IJ SCH; -SODIUM CHLORIDE 0.9% 10 ML VIAL ONE
[2025-04-08] MEDS ORDERED: EPINEPHrine Hydrochloride 1 MG/ML AMP IM ONE (02:25)
== END 2025-04-08 04:48 | disposition home or self-care (01) ==
LOC: ED 02:01
DX: T78.49XA Other allergy, initial encounter (principal); Z88.0 Allergy status to penicillin; Z88.5 Allergy status to narcotic agent; X58.XXXA Exposure to other specified factors, initial encounter

== ENCOUNTER → 2025-05-07 | Outpatient (CLI) | payer OTHER | END | disposition home or self-care (01) | LOC: MAMMO 10:34 | PROVIDERS: ATTEND Nurse Practitioner Family | DX: Z12.31 Encounter for screening mammogram for malignant neoplasm of breast (principal) ==

== ENCOUNTER → 2025-05-10 | Day surgery (SDC) | payer OTHER ==
[2025-05-07 12:32] LABS: BUN 13 mg/dl (9-23)
[~2025-05-10] VITALS: Ht 157.4 cm; Wt 77.1 kg
[~2025-05-10] MED LIST changes: +Albuterol Sulfate 2.5 MG/0.5 ML VIAL NEB ONE; +Bupivacaine Hydrochloride/Ep2 30 ML VIAL ONE; +Dexamethasone Sodium Phospha 4 MG/ML VIAL IV ONE; +HYDROCODONE-AC1 EAC1 PO; +Lactated Ringer's Solution 1,000 ML IV ONE; +Lidocaine Hydrochloride 4% 5 ML AMP NEB ONE; +Midazolam Hydrochloride 2 MG/2 ML VIAL IV ONE; +Ondansetron Hydrochloride 4 MG/2 ML VIAL IV ONE; +PROPOFOL 200 MG/20 ML VIAL IV ONE; +ROCURONIUM BROMIDE 50 MG/5 ML SYRINGE IV ONE; +Ropivacaine Hydrochloride 5 MG/ML 20 ML AMP IJ ONE; +SEVOFLURANE 250 ML BOT INH ONE; +SUGAMMADEX SODIUM 200 MG/2 ML VIAL IV ONE; +ceFAZolin sodium/sodium chlor 10 ML IV ONE
[2025-05-10 07:30] VITALS: BP 90/55
[2025-05-10 09:42] VITALS: BP 122/46
[2025-05-10 09:57] VITALS: BP 110/47
[2025-05-10 10:12] VITALS: BP 108/54
[2025-05-10 10:27] VITALS: BP 103/56
[2025-05-10 10:43] VITALS: BP 101/65
== END | disposition home or self-care (01) ==
LOC: SDC 05-08 09:30
PROVIDERS: ATTEND Orthopaedic Surgery
DX: M75.02 Adhesive capsulitis of left shoulder (principal); K21.9 Gastro-esophageal reflux disease without esophagitis; F41.9 Anxiety disorder, unspecified; F32.A Depression, unspecified; Z87.891 Personal history of nicotine dependence; Z79.899 Other long term (current) drug therapy; Z88.0 Allergy status to penicillin; Z88.8 Allergy status to other drugs, medicaments and biological substances